=== PATIENT | male | born 1960 | race Hispanic/Latino ===

== ENCOUNTER 2021-08-16 19:27 | Emergency (ER) | payer BC ==
[2021-08-16] MEDS ORDERED: Doxycycline 100 MG CAP ONE (20:13)
== END 2021-08-16 20:24 | disposition home or self-care (01) ==
LOC: NAV ERS 19:27
DX: L03.115 Cellulitis of right lower limb (principal); E78.00 Pure hypercholesterolemia, unspecified; F17.210 Nicotine dependence, cigarettes, uncomplicated; I10 Essential (primary) hypertension; Z79.899 Other long term (current) drug therapy; Z79.82 Long term (current) use of aspirin
CPT/HCPCS: 99283